=== PATIENT | male | born 1965 | race Caucasian/White ===

== ENCOUNTER 2023-12-27 10:20 | Outpatient (AMB) | payer OTHER, SELFPAY ==
--- NOTE | 2023-12-27 10:24 | HO.SPINEOV ---
Intake Visit Reasons: lumbar radiculopathy Intake Note: Mr. Davis is here today c/o right sided leg pain with numbness on right foot, also difficulty urinating. Retail Advertising Sales Manager Required: No Allergies No Known Allergies Allergy (Verified 12/27/23 10:26) Assessment & Plan Assessment & Plan (1) Lumbar radiculopathy: Code(s): M54.16 - Radiculopathy, lumbar region Category: Medical Plan Dear Dr. Nugent, Thank you for referring Adilson to our office today. He is a pleasant 58-year-old male who comes in today with a chief complaint of low back pain with radiation to his right lower extremity. To recap Adilson was referred urgently to us by [facility] in [place], [place]. He states that his pain began roughly 3 weeks ago while doing lawn care outside. He felt a tweak in his low back and it began to worsen as the days progressed. After a few days he began to have a shooting pain into his right lower extremity. This is accompanied by tingling and burning. When describing the shooting pain he states that it goes from his posterior buttocks over the side of his right thigh, and down to the right calf. He reports associated weakness and difficulty walking with this pain. He was put on a methylprednisone Dosepak, and Percocet, both of which have only been modestly helpful. Of note, he has a history of 3 previous spine surgeries. The 1st of which was in 1996 in [facility] (unknown surgeon) an L4-5 microdiskectomy. The next 2 were completed at [facility] by Dr. Thomas. He did a L4-5 laminectomy in 2011 in an L5-S1 microdiskectomy in 2013 per the patients report. The patient states he attempted to go back to Dr. Thomas for evaluation after this injury but was unable to find where he is currently practicing (I informed him that [facility] is retired). The patient states that he is now to the point where he was in 10/10 pain all day, he is unable to sit, stand, walk without pain. The only relief he gets is from laying down on his side, which he did for the bulk of this visit. PMH: History of 3 previous back surgeries as described in HPI. No other reported medical history. Social hx: The patient does not smoke, reports no substance use. Medications: Percocet 5mg/325 mg. Methylprednisone Dosepak (completed). Ambien 5 mg q.h.s. Allergies: NKDA. Physical exam: The patient has 4/5 strength with hip flexion and knee extension on the right. He elicits extreme pain with right lower extremity strength testing. He had difficulty sitting upright for the entirety of this exam. Again, he remained lying on his side for the bulk of this exam. The rest of his strength is 5/5 in his upper and lower extremities. His left patellar reflex is 1+ hypoactive, even with valsalva maneuver. The rest of his reflexes are 2+ intact. He reports no significant sensational deficits aside from some tingling over the right inferior calf. He walks with an extremely antalgic gait nearly unable to bear weight on his right leg. (+) right-sided straight leg raise. (-) Laughlin's. (-) clonus. Imaging review: MRI of the lumbar spine completed at [place] on 12/14/2023 shows an acute disc herniation at L4-5 causing severe right-sided L5 foraminal stenosis at this level. Visible postsurgical changes and evidence of laminectomy at L4-5. Impression: The patient is a 58-year-old male who comes in today with a chief complaint of low back pain with radiation into his right lower extremity. This began roughly 3 weeks ago when he was outside working on his lawn. He states that he felt a tweak in his back causing shooting radiculopathy down his right leg. This is a classic presentation for an acute disc herniation causing severe nerve root impingement. The patient has now gotten to the point where he is having weakness, in his largely unable to accomplish any of his ADLs without extreme pain. I believe he has a good candidate for a right-sided L4-5 microdiskectomy to decompress the L5 nerve root that is impinged on MRI imaging. His symptoms match this dermatomal distribution. I will review this case with Dr. Alvarado tomorrow and will have him added to the surgical schedule with all deliberate speed. Thank you for allowing us to care for your patient. The total time spent with this visit with this patient was 45 minutes reviewing history, physical exam, MRI imaging review, and implementation of treatment plan or further diagnostic testing Winston Alvarado MD,PhD [facility] Coding Level of Care Code New Pt Level 4 (34255) Diagnoses Lumbar radiculopathy M54.16
== END 2023-12-27 11:13 | disposition home or self-care (01) ==
PROVIDERS: PCP Internal Medicine; Referring Provider Internal Medicine; Visit Provider Physician Assistant
DX: M54.16 Radiculopathy, lumbar region (principal)
CPT/HCPCS: 99204

== ENCOUNTER → 2023-12-27 10:20 | Outpatient (BNVA) | payer OTHER, SELFPAY | PROVIDERS: PCP Internal Medicine; Visit Provider Physician Assistant ==

== ENCOUNTER 2024-01-04 09:31 | Day surgery (SDC) | payer OTHER, SELFPAY ==
[2024-01-03 10:07] VITALS: BMI 34.1
--- NOTE | 2024-01-03 12:26 | HO.ANESPROP2 ---
Documented by User: Chaya Benavides NP 01/03/24 12:29 HPI - Anesthesia Eval Consult details Narrative: 58yo M for Right REDO L4-5 MicroLumbar discectomy DNR? Anesthesia Pre-Procedure Meds Is the patient on any of the following meds?: GLP1/DPP4 PMFSH Active Problems Active Problems: All Active Problems Lumbar radiculopathy (Acute) Past Medical History Medical History Weight loss Insomnia Back pain Polymyalgia rheumatica Surgical History Surgical History Hx of arthroscopy of right knee H/O colonoscopy History of back surgery Social History Social History Do you presently have visiting nurse or other home services: No Patient Tobacco Use Status: Former Tobacco user Tobacco use type: Cigarette Years Smoked: 30 Use of substances other than those prescribed or required for medical reasons: Yes Substance Use Frequency: Occasionally Have you been hit, kicked, punched, or otherwise hurt by someone within the past year? If so, by whom?: No Are you DNR?: Yes Advance Directives: No Advance Directives Information Provided: Yes Advance Directives on File: No Recently lost weight without trying: No Eating poorly because of decreased appetite: No Nutrition Risks: No Nutritional Risk Poor oral hygiene: No Meds Allergies Allergy/AdvReac Type Severity Reaction Status Date / Time No Known Allergies Allergy Verified 01/04/24 09:34 Home Medications ?Medication ?Instructions ?Recorded ?Confirmed ?Last Taken ?Type gabapentin 100 mg capsule 300 mg PO TID 01/03/24 01/03/24 01/04/24 History oxycodone 5 mg tablet 5 mg PO TID pain 01/03/24 01/03/24 01/04/24 History semaglutide (weight loss) 0.5 0.5 mg subcut QWEEK 01/03/24 01/03/24 12/27/23 History mg/0.5 mL subcutaneous pen injector (Wegovy) zolpidem 5 mg tablet 5 mg PO BEDTIME 01/03/24 01/03/24 Unknown History Exam Height,Weight and Vital Signs: Height 5 ft 11.75 in Weight 113.398 kg Pertinent Lab Results Pertinent Lab Results: CBC 07/2023 ok Assessment and Plan Assessment Anesthesia Assessment: Chart Reviewed Documented by User: Gely Stratton MD 01/04/24 10:37 PMFSH Past Medical History Medical History Weight loss Insomnia Back pain Polymyalgia rheumatica Family History Family history of problems with anesthesia: No Surgical History Surgical History Hx of arthroscopy of right knee H/O colonoscopy History of back surgery History of Problems with Anesthesia: No Social History Social History Do you presently have visiting nurse or other home services: No Patient Tobacco Use Status: Former Tobacco user Tobacco use type: Cigarette Years Smoked: 30 Use of substances other than those prescribed or required for medical reasons: Yes Substance Use Frequency: Occasionally Have you been hit, kicked, punched, or otherwise hurt by someone within the past year? If so, by whom?: No Are you DNR?: Yes Advance Directives: No Advance Directives Information Provided: Yes Advance Directives on File: No Recently lost weight without trying: No Eating poorly because of decreased appetite: No Nutrition Risks: No Nutritional Risk Poor oral hygiene: No Meds Allergies Allergy/AdvReac Type Severity Reaction Status Date / Time No Known Allergies Allergy Verified 01/04/24 09:34 Home Medications ?Medication ?Instructions ?Recorded ?Confirmed ?Last Taken ?Type gabapentin 100 mg capsule 300 mg PO TID 01/03/24 01/03/24 01/04/24 History oxycodone 5 mg tablet 5 mg PO TID pain 01/03/24 01/03/24 01/04/24 History semaglutide (weight loss) 0.5 0.5 mg subcut QWEEK 01/03/24 01/03/24 12/27/23 History mg/0.5 mL subcutaneous pen injector (Wegovy) zolpidem 5 mg tablet 5 mg PO BEDTIME 01/03/24 01/03/24 Unknown History Exam Airway Mallampati Class: II TM Dist: >3cm Neck ROM: Full Heart: rrr Lungs: cta Assessment and Plan Assessment Anesthesia Assessment: Anesthesia Plan Discussed Final Anesthetic Review Family History of Problems with Anesthesia: No History of Problems with Anesthesia: No NPO: Yes ASA Class: III Final Preanesthetic Review: No Changes in Pt Med Stat, Meds/Allgs Chart Reviewed, Consent Obtained/Reviewed, Anes Risks/Benef Reviewed and DNR Form (If Appl.) (reversed) Patient Risk: Intermediate Procedure Risk: Intermediate Anesthetic Plan Anesthetic Plan: MAC: Disposition: Standard PACU
[2024-01-04] VITALS (11 sets, daily range): BP systolic 122–136; BP diastolic 74–84; PULSE 80–95; RESP 15–18; TEMP 36.4–36.8; O2SAT 91–98; BMI 33.5
--- NOTE | ~2024-01-04 | FL_ITS ---
EXAMINATION: XR FLUOROSCOPY WITH IMAGES CLINICAL INFORMATION: Redo L4-L5 right. COMPARISON: None available. TECHNIQUE: Fluoroscopy Supervised By: Dr. Gonzalo Alvarado Fluoroscopy Time: 3 seconds Cumulative Dose: 2.3192 mGy-cm DAP: 1.0088 Gy-cm2 Images: 1 FINDINGS: Intraoperative fluoroscopy and spot films were performed during a procedure in the OR. A probe is seen at the L4-L5 level. Please correlate with Dr. Gonzalo Alvarado' report for complete details. FL/FL guidance in OR IMPRESSION: Intraoperative fluoroscopy and spot films were obtained. Please see Dr. Gonzalo Alvarado report for complete details.
[2024-01-04] MEDS: Lactated Ringers 1,000 ML 100 ML IVCONT (09:43)
[2024-01-04] MEDS: methocarbamoL 750 MG TABLET PO (09:54)
--- NOTE | 2024-01-04 10:58 | MHC.SHP ---
Pre-Procedural Eval Section A - 24 Hr Update-Section A only Date of Service: 01/04/24 The patient is an INPATIENT: No The patient has been examined within 24 hours of the surgical procedure. The History & Physical has been completed within 30 days and I have reviewed it.: Yes Section B - Complete if H&P > 30 days Chief Complaint: Radiculopathy, lumbar region Allergies: Allergies Allergy/AdvReac Type Severity Reaction Status Date / Time No Known Allergies Allergy Verified 01/04/24 09:34 Plan redo right L4-5 diskectomy Time Spent With Patient Time: Total time managing care of this patient today __6__ minutes.
--- NOTE | 2024-01-04 12:41 | P.OP_ITS ---
Operative Note Operative Note Date of Service: 01/04/24 Narrative: Preoperative diagnosis: L4-5 lumbar radiculopathy due possible recurrent disc herniation Postoperative diagnosis: Same Procedure: Right side; Recurrent L4-5 lumbar microdiskectomy with microscope Surgeon: Michoacano Alvarado MD, PhD Fence Installer: jose r Bowen This 58-year-old male presented with an acute lumbar radiculopathy going down his right leg. He has a history of 2 L4-5 microdiskectomies in the past in another institution. An MRI shows a possible small disc herniation L4-5 compressing the L5 nerve root.. The patient was offered a reexploration to decompress the nerve root. The procedure complications were explained. The patient was consented. The patient was brought to the operating room and endotracheally intubated. The patient was turned in a prone position on the Umair frame. Prepping and draping was done followed by time-out. The previous mid lumbar incision was partially opened. The dissection was carried out to expose the right L4-5 lamina and L4-5 disc space. An intraoperative x-rays obtained to confirm the correct level. The microscope was brought in. A right L4 laminotomy was done followed by opening of the flavum ligament. The L5 nerve root was identified and retracted medially to expose the L4-5 disc space. The nerve root was in his anatomical position. A nerve hook could be moved freely under the L5 nerve root and no disc herniation was found medial lateral from the nerve root. Pulsations of the nerve root were noticed. Hemostasis was done. The microscope was removed. Marcaine was injected intramuscularly.The incision was closed in two layers. Steri-Strips used to approximate seizure. An op-site were taken there was used to cover the incision. All sponge and needle counts were correct. Patient was extubated and transported in stable condition to recovery room. this procedure was done with the aid of a physician sales assistant institutional sales who performed the initial exposure until the microscope was brought in and performed the closure of the incision. Anesthesia: General Blood loss: 10 mL Complications: None Specimen: None Surgical time: 45 minutes Disposition: Discharge home
--- NOTE | 2024-01-04 12:50 | PM.DS ---
DS: Providers Provider Date of Service: 01/04/24 Date of discharge: 01/04/24 Primary care physician: Neeta Nugent MD Admitting clinician: Michoacano Alvarado DS: Diagnosis Discharge Diagnosis (1) Lumbar radiculopathy: Status: Acute DS: Summary Time Attestation Discharge Coordination Time (in mins): 6 Quality: Safe Use of Opioids Does Pt have an Active Cancer Diagnosis on the Problem List?: No Quality: Stroke Does the patient have a stroke diagnosis?: No Physical Exam Vital Signs: Vital Signs: Last Vital Signs Temp 98.2 F 01/04/24 09:57 Pulse 95 01/04/24 09:57 Resp 18 01/04/24 09:57 BP 132/81 01/04/24 09:57 Pulse Ox 98 01/04/24 09:57 O2 Del Method Room Air 01/04/24 09:57 BMI result Body Mass Index 33.5 Discharge Plan Discharge Patient Disposition: Home, Self-Care Referrals: Neeta Nugent MD [Primary Care Provider] - 1 Week Discharge Medications: Continued zolpidem 5 mg tablet 5 mg PO BEDTIME gabapentin 100 mg Capsule 300 mg PO TID Wegovy 0.5 mg/0.5 mL pen injector 0.5 mg subcut QWEEK Rx Instructions: takes on Mondays oxycodone 5 mg tablet 5 mg PO TID Discharge Orders: Discharge Order (Routine); Ordered 01/04/24 Ordered By: Refugio Wright Diet: Advance to usual diet Activity on Discharge: As tolerated Activity Restrictions/Additional Instructions: After your spinal surgery we ask you to observe the following restrictions/guidelines: Activity: It is normal to feel some discomfort as you increase your activity, but that will improve with time. We ask you avoid heavy lifting or acitivities that cause pain. As a general rule, 8lbs is a safe limit for lifting right after surgery. Walk as much as you feel comfortable but not to exhaustion. You will feel extra tired the first few days after surgery. Stay well hydrated. It is OK to walk up and down stairs You may return to driving when you are off narcotics (such as vicodin, oxycodone, dilaudid, etc), and you are back to normal functional capacity. If you have any concerns please check with office before driving. Return to work is specific to each patient and each surgery, so please speak with your doctor/PA at first follow up. Please bring paperwork such as FMLA at that time if you need it filled out. Medications: For optimum pain control, it is best to start with a combination of 500 mg of Tylenol every 4 hours with 600 mg of Motrin every 8 hours, and use narcotics as needed in between for breakthrough pain. We will give you a short supply of narcotics after surgery (usually one weeks worth). If you need more please call the office but do not use more than prescribed. You will need to give our office 48 hours notice if you need narcotics refilled and we do not fill narcotics on weekends or evenings. If you are on a narcotic, it is a good idea to take a stool softener such as colace or senna to avoid constipation If you take blood thinner such as aspirin, Plavix, Coumadin, Effient, Eliquis etc for conditions such as Afib, DVT, Pulmonary embolus, coronary disease, stents etc please speak with your surgeon about specific details as to when you can resume these medications. You can resume NSAIDs on post op day 1 (eg: Motrin, Naproxen, etc). Follow up: Please call the office, , after surgery to arrange a 3 week follow up for wound check. Wound Care: You may remove your dressing on the first day after surgery. ?You may ?leave open to air. Please do not remove the steri strips underneath. they will fall off on their own in one week. IT IS NORMAL FOR THE WOUND TO OOZE OR BE BLOODY FOR A FEW DAYS AFTER SURGERY. ?IF THIS HAPPENS JUST PLACE NEW DRESSING OVER IT TO AVOID STAINING CLOTHES. You may shower on post op day # 1 We ask that you do not let the water soak the wound. If it does get wet, just towel dry lightly. Please do not scrub your incision or place any type of chemical/ointment on the wound. No tub baths, pools or jacuzzis for one month. If you have any leaking or redness from your wound, or fevers, please call office Print Language: Belarusian
[2024-01-04] MEDS: HYDROmorphone HCl 0.5 MG/0.5 ML SYRINGE 0.25 MG IVPUSH (13:30)
== END 2024-01-04 15:18 | disposition home or self-care (01) ==
PROVIDERS: PCP Internal Medicine; Visit Provider Neurological Surgery
PROC: (CPT 63042; principal; 2024-01-04 09:30)
DX: M54.16 Radiculopathy, lumbar region (principal); M54.50 Low back pain, unspecified; R26.2 Difficulty in walking, not elsewhere classified; Z79.899 Other long term (current) drug therapy; Z79.1 Long term (current) use of non-steroidal anti-inflammatories (NSAID); Z79.85 Long-term (current) use of injectable non-insulin antidiabetic drugs; Z66 Do not resuscitate; Z98.890 Other specified postprocedural states
CPT/HCPCS: 63042; J0131; J0690; J1100; J1170; J1885; J2250; J2405; J2704; J3010

== ENCOUNTER → 2024-01-04 09:31 | Outpatient (BNV) | payer OTHER, SELFPAY | PROVIDERS: PCP Internal Medicine; Visit Provider Neurological Surgery | DX: M54.16 Radiculopathy, lumbar region (principal) | CPT/HCPCS: 63042; 99499 ==

== ENCOUNTER 2024-01-24 11:38 | Outpatient (AMB) | payer OTHER, SELFPAY ==
--- NOTE | 2024-01-24 11:54 | A.SPINEOV_ITS ---
Intake Visit Reasons: 1st post op Intake Note: Mr. Davis is here today for his 1st post-op visit. Senior Underwriter Required: No Allergies No Known Allergies Allergy (Verified 01/24/24 11:55) Assessment & Plan Assessment & Plan (1) Lumbar radiculopathy: Code(s): M54.16 - Radiculopathy, lumbar region Category: Medical Plan Procedure: Right side; Recurrent L4-5 lumbar microdiskectomy Adilson is a pleasant 58 y/o male who comes in today for his 1st postoperative visit. He reports about 50% reduction in his right-sided lumbar radiculopathy since surgery. He expressed concerns regarding the operative findings. To recap we did not find any evidence of an acute disc herniation on the right- sided L4 nerve root. However, after surgery he felt much better. He was accompanied by his who also asked several questions regarding the postoperative healing course of the patient's symptoms. I answered all of their questions to the best of my ability. I think much of his residual pain is likely a result of postoperative inflammation. It is most likely that the disc had already resorbed prior to surgery. No new neurological deficits. The patient is able to ambulate well and rises from seated position without difficulty. His posterior incision site appears closed and well healed. I would like to follow up with Adilson again in 6 weeks to evaluate for continued postoperative healing. Winston Alvarado MD,PhD [facility] Coding Level of Care Code Global (87956) Diagnoses Lumbar radiculopathy M54.16
== END 2024-01-24 12:08 | disposition home or self-care (01) ==
PROVIDERS: PCP Internal Medicine; Visit Provider Physician Assistant
DX: M54.16 Radiculopathy, lumbar region (principal)
CPT/HCPCS: 99024

== ENCOUNTER → 2024-01-24 11:38 | Outpatient (BNVA) | payer OTHER, SELFPAY | PROVIDERS: PCP Internal Medicine; Visit Provider Physician Assistant ==

== ENCOUNTER 2024-03-06 11:37 | Outpatient (AMB) | payer OTHER, SELFPAY ==
--- NOTE | 2024-03-06 11:40 | HO.SPINEOV ---
Intake Visit Reasons: 2nd post op Intake Note: Mr. Davis is here today for his 2nd post-op appointment. Harbor Master Required: No Allergies No Known Allergies Allergy (Verified 01/24/24 11:55) Assessment & Plan Assessment & Plan (1) Lumbar radiculopathy: Code(s): M54.16 - Radiculopathy, lumbar region Category: Medical Plan Procedure: Right side; Recurrent L4-5 lumbar microdiskectomy Adilson comes in today for his 2nd postoperative visit after having a microdiskectomy completed by our service. To recap during surgery we did not find a disc herniation, it most likely had resorbed prior to surgery. Given this, the patient reported roughly 50% pain reduction and his 1st postop visit, and today reports he ?feels completely fine.? He states he is essentially back to normal, and has no pain or physical restrictions. Adilson was encouraged to follow up on an as-needed basis. There is no need for continued routine follow-up. Winston Alvarado MD,PhD [facility] Coding Level of Care Code Global (30588) Diagnoses Lumbar radiculopathy M54.16
== END 2024-03-06 12:49 | disposition home or self-care (01) ==
PROVIDERS: PCP Internal Medicine; Visit Provider Physician Assistant
DX: M54.16 Radiculopathy, lumbar region (principal)
CPT/HCPCS: 99024

== ENCOUNTER → 2024-03-06 11:37 | Outpatient (BNVA) | payer OTHER, SELFPAY | PROVIDERS: PCP Internal Medicine; Visit Provider Physician Assistant ==